=== PATIENT | female | born 1995 | race Two or more races ===

== ENCOUNTER 2024-11-05 19:22 | Emergency (ER) | payer OTHER ==
[~2024-11-05] VITALS: Ht 160 cm; Wt 60.8 kg
[2024-11-05 19:50] VITALS: BP 103/65; O2SAT 97
[2024-11-05] MEDS ORDERED: FAMOTIDINE/PF 20 MG in 0.9 % SODIUM CHLORIDE 8 ML IV PUSH STA (19:54)
[2024-11-05] MEDS ORDERED: 0.9 % SODIUM CHLORIDE 1,000 ML IV SCH (20:00)
[2024-11-05] MEDS ORDERED: ONDANSETRON HCL 2 MG/ML VIAL IV ONE (20:00)
[2024-11-05] MEDS ORDERED: ONDANSETRON HCL 2 MG/ML VIAL ONE (20:20)
[2024-11-05] MEDS ORDERED: FAMOTIDINE/PF 20 MG/2 ML VIAL ONE (20:21)
[2024-11-05 20:37] LABS: HEMATOCRIT 37.3 % (36.0-45.00); HEMOGLOBIN 12.4 g/dL (12.0-15.00); MEAN CELL VOLUME 79.2 fL (80.00-100.00); MEAN CORPUSCULAR HEMOGLOBIN 26.2 pg (27.00-32.0); MEAN CORPUSCULAR HGB CONC 33.1 g/dl (32.0-36.0); PLATELET COUNT 151 K/uL (150-450); RED BLOOD COUNT 4.72 M/uL (4.00-6.00)
[2024-11-05 20:52] LABS: RED CELL DISTRIBUTION WIDTH 17.7 % (11.5-14.5)
[2024-11-05 21:04] LABS: ALBUMIN 3.7 gm/dL (3.4-5.0); BILIRUBIN TOTAL 0.17 mg/dL (0.3-1.2); CALCIUM 8.8 mg/dL (8.5-10.1); CREATININE SERUM 0.54 mg/dL (0.55-1.02); GFR 134.43; GLOBULINA 4.4 G/DL (2.4-3.5); POTASSIUM 3.89 mEq/L (3.5-5.1); TOTAL PROTEIN 8.1 gm/dL (6.4-8.2)
[2024-11-05] MEDS ORDERED: PEPCID AC20 MG PO (23:09)
[2024-11-05] MEDS ORDERED: ZITHROMAX500 MG PO (23:09)
[2024-11-05] MEDS ORDERED: ONDANSETRON ODT8 MG PO (23:09)
[2024-11-05] MEDS ORDERED: XOPENEX CO1.25 MG/0. IH (23:09)
[2024-11-05] MEDS ORDERED: TUSNEL LIQUID178 ML PO (23:09)
== END 2024-11-05 23:32 | disposition home or self-care (01) ==
LOC: ER 19:23
PROVIDERS: General Practice
DX: B34.8 Other viral infections of unspecified site (principal)